=== PATIENT | female | born 1965 | race Caucasian/White ===

== ENCOUNTER 2017-01-27 23:59 | Emergency (ER) | payer OTHER ==
[~2017-01-27 23:59] MED LIST: ADDERALL PO; ALPRAZOLAM PO; BENTYL20 MG PO; CATAPRES0.1 MG PO; CELEXA PO; CLINORIL PO; COLACE PO; DULCOLAX5 MG PO; FLEXERIL10 MG PO; MEDROL PO; MEDROL4 MG/DOSE- PO; MOBIC PO; NEURONTIN PO; PERCOCET10 PO; SKELAXIN PO; TAGAMET PO; TYLOX 5/500 CAP1 CAP PO; VICODIN 5/500 T1 TAB PO; ZANAFLEX PO; ZOFRAN ODT4 MG PO; ZOFRAN PO
== END 2017-01-28 00:05 | disposition left against medical advice (07) ==
LOC: CED 23:59
DX: Z53.21 Procedure and treatment not carried out due to patient leaving prior to being seen by health care provider (principal)